=== PATIENT | male | born 1995 | race Caucasian/White ===

== ENCOUNTER 2019-10-14 00:25 | Emergency (ER) | payer SELFPAY ==
--- NOTE | 2019-10-14 00:25 | NUR ---
PT STATES THAT HE WANTS TO KILL HIMSELF AND THAT HE DOES NOT WANT TO LIVE. PT BROUGHT BACK INTO ED VIA W/C. PT HAD VOMITED ON THE FLOOR IN FRONT OF THE REGISTRATION WINDOW. PT PLACED HIMSELF INTO W/C AND WAS MOVED TO THE OUTSIDE OF ROOM FS04. ROOM WAS PREPARED AND PT WAS MOVED INTO ROOM VIA W/C. PT WAS GIVEN A GOWN AND INSTRUCTED TO TAKE OFF HIS CLOTHING AND CHANGE INTO GOWN. PT WALKED OUT OF THE ROOM AND STATED THAT HE DID NOT NEED ANY HELP AND WAS LEAVING. PT WALKED OUT OF THE ED INTO THE PARKING LOT. MARCELLA MCGRATH CONTACTED AND AND INFORMED THAT A PT WITH SUICIDAL IDEATION HAD WALKED OUT OF THE ED.
--- OUTSIDE RECORDS SUMMARY | 2019-10-14 00:32 | XMS REPORT | Clinical Summary ---
Author Author [facility] Organization [facility] Address [address] [address] Phone Care Team Providers Care Audio Visual Project Manager Name Role Phone ALEXANDRIA MAURICIO MD PCP Conditions or Problems Problem Name Problem Code Onset Date Status Entry Date Provider Comment Standard Description Annotate ALLERGIC RHINITIS 02903117 (SNOMED CT) Inactive ALEXANDRIA MAURICIO MD Allergic rhinitis Medications Medication Instructions Start Date Stop Date Generic Name NDC Pr ovider CLARITIN 10 MG TABS Take ONE tablet daily as needed 20 10/09/13 LORATADINE [id number] ALEXANDRIA MAURICIO MD FLUTICASONE PROPIONATE 50 MCG/ACT SUSP Use 1 spray to each nostril One or Two times daily. FLUTICASONE PROPIONATE [id number] ALEXANDRIA MAURICIO MD Medications Administered No information available. Allergies, Adverse Reactions, Alerts Observed no known allergies at Results No information available. Plan of Care No information available. Procedures No information available. Vital Signs Date Name Value Unit Description Weight Measured 148 [lb_av] weight E&M Weight Measured 67.27 kg weight in ki lograms E&M
--- OUTSIDE RECORDS SUMMARY | 2019-10-14 00:32 | XMS REPORT | Continuity of Care Document ---
Author Author [facility] Address [address] [place] [address] Phone Unavailable Care Team Providers Care Quiller Hand Name Role Phone Unavailable Unavailable Insurance Providers Payer Name Policy Number Subscriber Name Relationship Self-Pay Self-Pay PHIL MARES Self Advance Directives Directive Response Recorded Date/Time Advance Directives: No 03/25/15 3:45am Chief Complaint and Reason for Visit Reason for Visit ADMIT FROM ER Problems Medical Problems Problem Onset Date Status Overdose of antitussive Unknown Active Tachycardia Unknown Active Altered mental state Unknown Active Medications Medication Dose Route Sig Days/Qty Instructions Order Date Disc ontinued Date Status diphenhydrAMINE (Benadryl) 25 MG CAPSULE 25 MG ORAL At bed time takes 2 capsule every night to help sleep 03/26/15 Discontinued traZODone (Desyrel) 50 MG TABLET 50 MG ORAL Daily at bedtime 30 Qty 03/26/15 Active buPROPion 24-HR XL (Wellbutrin XL) 150 MG TAB.SR.24H 150 MG O RAL Once a day 30 Qty 03/26/15 Active Social History Social History Problem Response Recorded Date/Carlos Eduardo e 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 New patient appointment with ENT, next available, to eval tinnitus and history o f sinus infections. Follow-up with Dr. Dia in 1 week. Plan of Care Problem: overdose mucinex Goal: Provide needed support Instructions: take medications and follow up as scheduled Plan of Care Discharge Date 03/26/15 3:00pm Disposition HOME, SELF-CARE or [facility] MCKENZIE Instructions/Education Provided Bupropion (By mouth) Trazodone (By mouth) Prescriptions See Medications Section Referrals EAR, NOSE, THROAT 04/25/15 [facility] 04/05/15 [facility] 03/28/15 Lionel Henley MD Functional Status Query Response Date Recorded Paralysis: N March 25, 2015 8:00 pm Steady Gait: Y March 26, 2015 8:17 am Weakness: N March 25, 2015 8:00 pm [employer] Internship Equal: Y March 26, 2015 8:17 am Contractures: N March 25, 2015 8:00 pm Alert: Y March 26, 2015 8:17 am Oriented x4: Y March 26, 2015 8:17 am Disoriented/Confused: N March 25, 2015 8: 00pm Drowsy: Y March 25, 2015 8:00 pm Lethargic: Y March 25, 2015 8:00 pm Unresponsive: N March 25, 2015 8:00 pm Allergies, Adverse Reactions, Alerts No Known Allergies or Alert Problems. Immunizations Name Date Given Type Tetanus Less than 5 years ago Historical Vital Signs Vital Reading Collection Date/Time Result Blood Pressure 03/26/15 11:09am 128/81 Blood Pressure Source 03/26/15 11:09am SI Patient Temperature 03/26/15 11:09am 98.1 Temperature Source 03/26/15 11:09am O Respiratory Rate 03/26/15 11:09am 20 Pulse Rate 03/26/15 11:09am 73 Pulse Location 03/26/15 11:09am DYN Bedside Pulse Oximetry 03/26/15 11:09am 100 Height 03/25/15 3:30am 177.8 cm Height 03/25/15 3:30am 5 ft 10 in Weight 03/25/15 3:37am 79.5 kg Weight 03/25/15 3:37am 175 lb Body Mass Index 03/25/15 3:37am 25.1 Procedures No Known History of Procedures. Results Test Source Date Result Interp. Ref. Range Comments Basophils # 03/25/15 0.1 0.0 - 0.2 Basophils % 03/25/15 0.3 % 0.0 - 2.0 Eosinophils # 03/25/15 0.1 0.0 - 0.7 Eosinophils % 03/25/15 0.3 % 0 - 4.0 Granulocytes # 03/25/15 14.5 H 1.4 - 6.5 Granulocytes (%) 03/25/15 84.6 % H 42.2 - 75.2 Lymphocytes # 03/25/15 1.2 1.2 - 3.4 Lymphocytes % 03/25/15 7.1 % L 20.0 - 51.0 Monocytes # 03/25/15 1.2 H 0.1 - 0.6 Monocytes % 03/25/15 7.2 % 1.7 - 9.3 Urine Appearance 03/25/15 Clear - Urine Bilirubin 03/25/15 Negative mg/dL NEGATIVE - Urine Blood 03/25/15 Negative NEGATIVE - Urine Collection Type 03/25/15 CATHETER - Urine Color 03/25/15 Yellow - Urine Epithelial Cells 03/25/15 RARE /lpf FEW - Urine Glucose 03/25/15 Negative mg/dL - Urine Ketones 03/25/15 5 NEGATIVE - Urine Leukocyte Esterase 03/25/15 Negative NEGAT CATINA - Urine Nitrate 03/25/15 Negative NEGATIVE - Urine Protein 03/25/15 Negative mg/dL NEGATIVE - Urine RBC 03/25/15 0-3 /hpf 0 - 3 Urine Specific [place] 03/25/15 1.020 1.001 - 1.035 Urine Urobilinogen 03/25/15 Negative mg/dL NORMAL - Urine WBC 03/25/15 0-3 /hpf 0 - 3 Urine pH 03/25/15 5.0 5.0 - 8.0 Rapid Troponin I 03/25/15 <0.02 ng/mL 0.00 - 0.08 Acetaminophen Level 03/25/15 < 10 ug/mL L 10 - 30 Alanine Aminotransferase (ALT/SGPT) 03/25/15 39 U/L 21 - 72 Albumin 03/25/15 4.9 gm/dL 3.5 - 5.0 Alkaline Phosphatase 03/25/15 79 U/L 50 - 136 Aspartate Amino Transf (AST/SGOT) 03/25/15 37 U/L 15 - 37 Calcium Adjusted for Albumin 03/25/15 8.6 mg/dL 8 .4 - 10.2 Magnesium Level 03/25/15 1.7 mg/dL 1.6 - 2.3 Phosphorus Level 03/25/15 2.3 mg/dL L 2.5 - 4.5 Plasma/Serum Blood Alcohol 03/25/15 < 10 mg/dL - Salicylates Level 03/25/15 < 1.0 mg/dL - Serum Total Protein 03/25/15 8.3 gm/dL H 6.4 - 8.2 Total Bilirubin 03/25/15 1.9 mg/dL H 0.0 - 1.0 Hematocrit 03/26/15 46.8 % 36.0 - 47.0 Hemoglobin 03/26/15 16.3 g/dl H 12.5 - 16.1 Mean Corpuscular Hemoglobin 03/26/15 30 pg 26 .0 - 32.0 Mean Corpuscular Hemoglobin Concent 03/26/15 35 g/dl 33.0 - 37.0 Mean Corpuscular Volume 03/26/15 86 fl 80.0 - 95.0 Mean Platelet Volume 03/26/15 8.8 fl 7.4 - 10. 4 Platelet Count 03/26/15 215 K/mm3 130 - 400 Red Blood Count 03/26/15 5.44 M/mm3 4.20 - 5.60 Red Cell Distribution Width 03/26/15 14.0 % 11 .5 - 14.5 White Blood Count 03/26/15 6.9 K/mm3 4.8 - 10.8 Anion Gap 03/26/15 12 mmol/L 7 - 16 Blood Urea Nitrogen 03/26/15 13 mg/dL 9 - 20 Calcium Level 03/26/15 9.4 mg/dL 8.4 - 10.2 Carbon Dioxide Level 03/26/15 25 mmol/L 22 - 30 Chloride Level 03/26/15 105 mmol/L 98 - 107 Creatinine 03/26/15 0.75 mg/dL 0.66 - 1.25 Estimated GFR () 03/26/15 161 - Estimated GFR (Non- 03/26/15 133 - Glucose Level 03/26/15 98 mg/dL 74 - 106 Potassium Level 03/26/15 4.0 mmol/L 3.4 - 5.0 Sodium Level 03/26/15 142 mmol/L 137 - 145 Basophils # 03/25/15 0.1 0.0 - 0.2 Basophils % 03/25/15 0.3 % 0.0 - 2.0 Eosinophils # 03/25/15 0.1 0.0 - 0.7 Eosinophils % 03/25/15 0.3 % 0 - 4.0 Granulocytes # 03/25/15 14.5 H 1.4 - 6.5 Granulocytes (%) 03/25/15 84.6 % H 42.2 - 75.2 Lymphocytes # 03/25/15 1.2 1.2 - 3.4 Lymphocytes % 03/25/15 7.1 % L 20.0 - 51.0 Monocytes # 03/25/15 1.2 H 0.1 - 0.6 Monocytes % 03/25/15 7.2 % 1.7 - 9.3 Urine Appearance 03/25/15 Clear - Urine Bilirubin 03/25/15 Negative mg/dL NEGATIVE - Urine Blood 03/25/15 Negative NEGATIVE - Urine Collection Type 03/25/15 CATHETER - Urine Color 03/25/15 Yellow - Urine Epithelial Cells 03/25/15 RARE /lpf FEW - Urine Glucose 03/25/15 Negative mg/dL - Urine Ketones 03/25/15 5 NEGATIVE - Urine Leukocyte Esterase 03/25/15 Negative NEGAT CATINA - Urine Nitrate 03/25/15 Negative NEGATIVE - Urine Protein 03/25/15 Negative mg/dL NEGATIVE - Urine RBC 03/25/15 0-3 /hpf 0 - 3 Urine Specific [place] 03/25/15 1.020 1.001 - 1.035 Urine Urobilinogen 03/25/15 Negative mg/dL NORMAL - Urine WBC 03/25/15 0-3 /hpf 0 - 3 Urine pH 03/25/15 5.0 5.0 - 8.0 Rapid Troponin I 03/25/15 <0.02 ng/mL 0.00 - 0.08 Acetaminophen Level 03/25/15 < 10 ug/mL L 10 - 30 Alanine Aminotransferase (ALT/SGPT) 03/25/15 39 U/L 21 - 72 Albumin 03/25/15 4.9 gm/dL 3.5 - 5.0 Alkaline Phosphatase 03/25/15 79 U/L 50 - 136 Aspartate Amino Transf (AST/SGOT) 03/25/15 37 U/L 15 - 37 Calcium Adjusted for Albumin 03/25/15 8.6 mg/dL 8 .4 - 10.2 Magnesium Level 03/25/15 1.7 mg/dL 1.6 - 2.3 Phosphorus Level 03/25/15 2.3 mg/dL L 2.5 - 4.5 Plasma/Serum Blood Alcohol 03/25/15 < 10 mg/dL - Salicylates Level 03/25/15 < 1.0 mg/dL - Serum Total Protein 03/25/15 8.3 gm/dL H 6.4 - 8.2 Total Bilirubin 03/25/15 1.9 mg/dL H 0.0 - 1.0 Hematocrit 03/26/15 46.8 % 36.0 - 47.0 Hemoglobin 03/26/15 16.3 g/dl H 12.5 - 16.1 Mean Corpuscular Hemoglobin 03/26/15 30 pg 26 .0 - 32.0 Mean Corpuscular Hemoglobin Concent 03/26/15 35 g/dl 33.0 - 37.0 Mean Corpuscular Volume 03/26/15 86 fl 80.0 - 95.0 Mean Platelet Volume 03/26/15 8.8 fl 7.4 - 10. 4 Platelet Count 03/26/15 215 K/mm3 130 - 400 Red Blood Count 03/26/15 5.44 M/mm3 4.20 - 5.60 Red Cell Distribution Width 03/26/15 14.0 % 11 .5 - 14.5 White Blood Count 03/26/15 6.9 K/mm3 4.8 - 10.8 Anion Gap 03/26/15 12 mmol/L 7 - 16 Blood Urea Nitrogen 03/26/15 13 mg/dL 9 - 20 Calcium Level 03/26/15 9.4 mg/dL 8.4 - 10.2 Carbon Dioxide Level 03/26/15 25 mmol/L 22 - 30 Chloride Level 03/26/15 105 mmol/L 98 - 107 Creatinine 03/26/15 0.75 mg/dL 0.66 - 1.25 Estimated GFR () 03/26/15 161 - Estimated GFR (Non- 03/26/15 133 - Glucose Level 03/26/15 98 mg/dL 74 - 106 Potassium Level 03/26/15 4.0 mmol/L 3.4 - 5.0 Sodium Level 03/26/15 142 mmol/L 137 - 145 Encounters Encounter Location Date/Time Discharged Inpatient [facility] 03/26/15 3:00pm Discharged Emergency [facility] 03/25/15 3:32am Recent Diagnosis Overdose of antitussive Tachycardia Altered mental state
--- OUTSIDE RECORDS SUMMARY | 2019-10-14 00:32 | XMS REPORT | Continuity of Care Document ---
Author Organization Unknown Address Unknown Phone Unavailable Allergies Active Description Code Type Severity Reaction Onset Reported/Identified Relationship to Patient Clinical Status Yes Unable to Assess N/A N/A Yes No Known Allergies NKA Mis cellaneous Allergy Unknown N/A 03/25/2015 Medications There is no data. Problems Date Dx Coded Attending Type Code Diagnosis Diagnosed By 03/26/2015 ANTON, JUAREZ W 300.4 03/26/2015 ANTON, JUAREZ W 314.01 03/26/2015 ANTON, JUAREZ W 315.2 03/26/2015 ANTON, JUAREZ W 339.3 03/26/2015 ANTON, JUAREZ W 428.0 03/26/2015 ANTON, JUAREZ W 428.22 03/26/2015 ANTON, JUAREZ W 511.9 03/26/2015 ANTON, JUAREZ A 975.5 03/26/2015 ANTON, JUAREZ W E849.9 03/26/2015 ANTON, JUAREZ W E858.6 04/21/2015 GUANAKO BRADSHAW 4619 ACUTE SINUSITIS NOS Procedures There is no data. Results There is no data. Encounters ACCT No. Visit Date/Time Discharge Status Pt. Type Provider Facility Loc./Unit Complaint [id number] 04/21/2015 20:43:00 04/21/2015 22:03 :00 DIS Emergency [facility]EE[facility] [id number] 03/25/2015 02:55:00 5 15:00:00 DIS Inpatient JUAREZ WALTON [facility] [place] 04/21/2015 20:44:33 ACT Document Registration
== END 2019-10-14 00:33 | disposition left against medical advice (07) ==
LOC: EDUNIT# 00:25 → ER FS 00:28
DX: R45.851 Suicidal ideations (principal); R11.10 Vomiting, unspecified

== ENCOUNTER 2019-10-14 00:48 | Emergency (ER) | payer SELFPAY ==
[~2019-10-14] VITALS: Ht 185.4 cm; Wt 81.7 kg
--- NOTE | 2019-10-14 00:58 | ED Psychosocial ---
General Stated Complaint: ETOH AND PILLS Source: patient Exam Limitations: no limitations (KATHLEEN MATIAS DO) History of Present Illness Date Seen by Provider: Oct 14, 2019 Time Seen by Provider: 00:57 Initial Comments Presents w SI / SA precipitated by his cheating on him and telling him to get out. Took about 10 prazosin 2mg tablets about 1 hour [employer], then vomited in ER waiting room. States he has felt depressed and having SI for awhile. 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 Has also started cutting both forearms a couple days ago. Denies any ETOH ingestion for > 24 hours. Denies any current or Hx of illicit drug use. (KATHLEEN MATIAS DO) Allergies and Home Medications Allergies Coded Allergies: No Allergy Information Available (Unverified , 10/14/19) Patient Home Medication List Home Medication List Reviewed: Yes (KATHLEEN MATIAS DO) Review of Systems Constitutional: see HPI EENTM: no symptoms reported Respiratory: no symptoms reported Cardiovascular: no symptoms reported Psychiatric/Neurological: Denies No Symptoms Reported; See HPI; Denies Anxiety; Depressed, Emotional Problems; Denies Headache, Denies Numbness, Denies Paresthesia, Denies Pre-Existing Deficit, Denies Seizure, Denies Tingling, Denies Tremors, Denies Weakness, Denies Other (KATHLEEN MATIAS DO) Past Eyifrde-Zkxszd-Jmgixg Hx Past Med/Social Hx: Reviewed Nursing Past Med/Soc Hx (KATHLEEN MATIAS DO) Patient Social History Alcohol Use: Occasionally Uses Recreational Drug Use: No Recent Foreign Travel: No Contact w/Someone Who Travel: No (KATHLEEN MATIAS DO) Physical Exam Vital Signs - First Documented 10/14/19 01:00 Temp 36.4 Pulse 113 Resp 17 B/P (MAP) 127/84 (98) O2 Delivery Room Air (MELBA LLOYD MD) Capillary Refill : (KATHLEEN MATIAS DO) Height, Weight, BMI Height: '" Weight: lbs. oz. kg; BMI Method: General Appearance: WD/WN, no apparent distress HEENT: normal ENT inspection Respiratory: chest non-tender, lungs clear Cardiovascular: regular rate, rhythm, no edema Gastrointestinal: non tender, soft Extremities: normal range of motion, normal capillary refill Neurologic/Psychiatric: no motor/sensory deficits, alert, oriented x 3, depressed affect Appearance/Memory: appropriate appearance, disheveled Behavior/Eye Contact: cooperative, good eye contact, normal speech Thoughts/Hallucinations: normal thought pattern, no apparent hallucination Skin: normal color (ROVENSTINE,KATHLEEN L DO) Progress/Results/Core Measures Results/Orders Lab Results Laboratory Tests Test 10/14/19 01:03 10/14/19 01:05 10/14/19 05:01 Range/Units Urine Opiates Screen NEGATIVE NEGATIVE Urine Oxycodone Screen NEGATIVE NEGATIVE Urine Methadone Screen NEGATIVE NEGATIVE Urine Propoxyphene Screen NEGATIVE NEGATIVE Urine Barbiturates Screen NEGATIVE NEGATIVE Ur Tricyclic Antidepressants Screen NEGATIVE NEGATIVE Urine Phencyclidine Screen NEGATIVE NEGATIVE Urine Amphetamines Screen NEGATIVE NEGATIVE Urine Methamphetamines Screen NEGATIVE NEGATIVE Urine Benzodiazepines Screen NEGATIVE NEGATIVE Urine Cocaine Screen NEGATIVE NEGATIVE Urine Cannabinoids Screen NEGATIVE NEGATIVE White Blood Count 11.2 H 4.3-11.0 10^3/uL Red Blood Count 5.91 H 4.35-5.85 10^6/uL Hemoglobin 18.0 H 13.3-17.7 G/DL Hematocrit 51 40-54 % Mean Corpuscular Volume 86 80-99 FL Mean Corpuscular Hemoglobin 30 25-34 PG Mean Corpuscular Hemoglobin Concent 35 32-36 G/DL Red Cell Distribution Width 16.7 H 10.0-14.5 % Platelet Count 268 130-400 10^3/uL Mean Platelet Volume 8.8 7.4-10.4 FL Neutrophils (%) (Auto) 77 H 42-75 % Lymphocytes (%) (Auto) 16 12-44 % Monocytes (%) (Auto) 6 0-12 % Eosinophils (%) (Auto) 1 0-10 % Basophils (%) (Auto) 0 0-10 % Neutrophils # (Auto) 8.6 H 1.8-7.8 X 10^3 Lymphocytes # (Auto) 1.8 1.0-4.0 X 10^3 Monocytes # (Auto) 0.6 0.0-1.0 X 10^3 Eosinophils # (Auto) 0.1 0.0-0.3 10^3/uL Basophils # (Auto) 0.0 0.0-0.1 10^3/uL Sodium Level 148 H 135-145 MMOL/L Potassium Level 3.7 3.6-5.0 MMOL/L Chloride Level 102 98-107 MMOL/L Carbon Dioxide Level 20 L 21-32 MMOL/L Anion Gap 26 H 5-14 MMOL/L Blood Urea Nitrogen 11 7-18 MG/DL Creatinine 0.84 0.60-1.30 MG/DL Estimat Glomerular Filtration Rate > 60 BUN/Creatinine Ratio 13 Glucose Level 86 70-105 MG/DL Calcium Level 9.6 8.5-10.1 MG/DL Corrected Calcium 8.5-10.1 MG/DL Total Bilirubin 1.1 H 0.1-1.0 MG/DL Aspartate Amino Transf (AST/SGOT) 19 5-34 U/L Alanine Aminotransferase (ALT/SGPT) 12 0-55 U/L Alkaline Phosphatase 83 40-136 U/L Total Protein 8.3 H 6.4-8.2 GM/DL Albumin 5.2 H 3.2-4.5 GM/DL Salicylates Level < 0.3 L 5.0-20.0 MG/DL Acetaminophen Level < 10 L 10-30 UG/ML Serum Alcohol 131 H 59 H <10 MG/DL (MELBA LLOYD MD) Medications Given in ED Current Medications Medications Dose Ordered Sig/Yesenia Route Start Time Stop Time Status Last Admin Dose Admin Acetaminophen 650 mg ONCE ONCE PO 10/14/19 06:15 10/14/19 06:16 DC 10/14/19 06:13 650 MG Ondansetron HCl 4 mg ONCE ONCE IVP 10/14/19 01:30 10/14/19 01:31 DC 10/14/19 01:29 4 MG (MELBA LLOYD MD) Vital Signs/I&O 10/14/19 01:00 Temp 36.4 Pulse 113 Resp 17 B/P (MAP) 127/84 (98) O2 Delivery Room Air (MELBA LLOYD MD) Progress Progress Note : Progress Note Mental health screening has been completed Patient is not interested in voluntary hospitalization and is not felt to be a threat to self or others to warrant involuntary hospitalization Arrangements have been made for a crisis appointment later this morning Patient has tolerated his ingestion without evidence of serious adverse effects Will be released with a safety plan to follow up with his crisis mental health appointment in a few hours (MELBA LLOYD MD) Transfer of Care Time: 06:00 Care transferred to: Dr Lloyd (KATHLEEN MATIAS DO) Departure Impression Primary Impression: Suicidal ideation Additional Impression: Suicide gesture Qualified Codes: X83.8XXA - Intentional self-harm by other specified means, initial encounter Disposition: 01 HOME, SELF-CARE Condition: Stable Departure-Patient Inst. Decision time for Depature: 07:27 (MELBA LLOYD MD) Referrals: NO,LOCAL PHYSICIAN (PCP/Family) Primary Care Physician Patient Instructions: Depression, Adult (DC) Add. Discharge Instructions: Be sure to keep your mental health crisis appointment later this morning If you have further thoughts of self-harm please return to the ER prior to acting on those impulses KATHLEEN MATIAS DO Oct 14, 2019 00:58 MELBA LLOYD MD Oct 14, 2019 07:25
--- OUTSIDE RECORDS SUMMARY | 2019-10-14 00:58 | XMS REPORT | Continuity of Care Document ---
[...] Status Pt. Type Provider Facility Loc./Unit Complaint [id number] 04/21/2015 20:43:00 04/21/2015 22:03 :00 DIS Emergency [facility] [id number] 03/25/2015 02:55:00 5 15:00:00 DIS Inpatient JUAREZ WALTON [facility] [place] 04/21/2015 20:44:33 ACT Document Registration
[2019-10-14] MEDS ORDERED: NS IV 1000 ML 1,000 ML IV SCH (01:15)
[2019-10-14 01:19] LABS: BASOPHILS % (AUTO) 0 % (0-10); EOSINOPHILS # (AUTO) 0.1 10^3/uL (0.0-0.3); EOSINOPHILS % (AUTO) 1 % (0-10); HEMATOCRIT 51 % (40-54); LYMPHOCYTES # (AUTO) 1.8 X 10^3 (1.0-4.0); LYMPHOCYTES % (AUTO) 16 % (12-44); MEAN CORPUSCULAR HEMOGLOBIN 30 PG (25-34); MEAN CORPUSCULAR HGB CONC 35 G/DL (32-36); MEAN CORPUSCULAR VOLUME 86 FL (80-99); MEAN PLATELET VOLUME 8.8 FL (7.4-10.4); MONOCYTES # (AUTO) 0.6 X 10^3 (0.0-1.0); MONOCYTES % (AUTO) 6 % (0-12); NEUTROPHILS # (AUTO) 8.6 X 10^3 (1.8-7.8); NEUTROPHILS % (AUTO) 77 % (42-75); PLATELET COUNT 268 10^3/uL (130-400); RED CELL DISTRIBUTION WIDTH 16.7 % (10.0-14.5); WHITE BLOOD COUNT 11.2 10^3/uL (4.3-11.0)
[2019-10-14] MEDS ORDERED: ONDANSETRON 4 MG/2 ML (SDV) Z0FRAN ONE (01:21)
[2019-10-14 01:27] LABS: AMPHETAMINE SCREEN, URINE NEGATIVE (NEGATIVE); BARBITURATE SCREEN URINE NEGATIVE (NEGATIVE); BENZODIAZEPINES SCREEN URINE NEGATIVE (NEGATIVE); CANNABINOID SCREEN, URINE NEGATIVE (NEGATIVE); COCAINE SCREEN URINE NEGATIVE (NEGATIVE); METHADONE STAT NEGATIVE (NEGATIVE); METHAMPHETAMINE SCREEN URINE S NEGATIVE (NEGATIVE); OPIATE SCREEN URINE NEGATIVE (NEGATIVE); OXYCODONE STAT NEGATIVE (NEGATIVE); PROPOXYPHENE STAT NEGATIVE (NEGATIVE); TRICYCLIC ANTIDEPRESSANTS SCRE NEGATIVE (NEGATIVE)
[2019-10-14] MEDS ORDERED: ONDANSETRON 4 MG/2 ML (SDV) Z0FRAN IVP ONE (01:30)
--- NOTE | 2019-10-14 01:30 | NUR ---
PT RESTING IN BED WITH THE LIGHTS OFF. PT STATES WE SHOULD HAVE "JUST LET ME ".
--- NOTE | 2019-10-14 01:43 | NUR ---
PT REQUESTED AND AN ATTEMPT WAS MADE TO CALL HIS . NO ANSWER AND THE VOICEMAIL BOX WAS FULL.
[2019-10-14 01:49] LABS: ALANINE AMINOTRANSFERASE 12 U/L (0-55); ALBUMIN 5.2 GM/DL (3.2-4.5); ALKALINE PHOSPHATASE 83 U/L (40-136); BILIRUBIN,TOTAL 1.1 MG/DL (0.1-1.0); BUN/CREATININE RATIO 13; CALCIUM 9.6 MG/DL (8.5-10.1); CARBON DIOXIDE 20 MMOL/L (21-32); CHLORIDE 102 MMOL/L (98-107); CREATININE SERUM 0.84 MG/DL (0.60-1.30); GFR ESTIMATED > 60; GLUCOSE 86 MG/DL (70-105); POTASSIUM 3.7 MMOL/L (3.6-5.0); SALICYLATE < 0.3 MG/DL (5.0-20.0); SODIUM 148 MMOL/L (135-145); TOTAL PROTEIN 8.3 GM/DL (6.4-8.2)
[2019-10-14 01:50] LABS: ACETAMINOPHEN < 10 UG/ML (10-30)
--- NOTE | 2019-10-14 01:50 | NUR ---
[facility] CONTACTED. INFORMED THAT PT WILL NEED TO BE MONITORED FOR 6 HOURS.
--- NOTE | 2019-10-14 02:09 | NUR ---
[facility] THIS RN INFORMED THAT THEY WILL RETURN CALL IN APPROX 30-60 MINUTES. TRACKING #[id number]
--- NOTE | 2019-10-14 02:22 | NUR ---
[facility] RETURNED CALL AND STATES THAT THE PT BLOOD ETOH NEEDS TO BE UNDER 100 BEFORE THEY WILL SCREEN PT.
--- NOTE | 2019-10-14 02:35 | NUR ---
PT RESTING IN BED AND WAKES EASILY. PT INFORMED THAT HE WILL HAVE TO WAIT UNTIL HIS BLOOD ALCOHOL LEVEL IS LESS THAN 100 PRIOR TO [facility] SCREENING. PT STATES THAT HE UNDERSTANDS AND THAT THERE IS NOTHING ELSE HE NEEDS AT THIS TIME. PT REQUESTED AND WAS GIVEN ANOTHER WARM BLANKET.
--- NOTE | 2019-10-14 05:00 | NUR ---
PT AWAKE AND OUT OF BED. PT AMBULATE TO BATHROOM.
--- NOTE | 2019-10-14 05:53 | NUR ---
[facility] CONTACTED AND INFORMED THAT PT ALCOHOL LEVEL IS WITHIN LIMIT FOR SCREENING. [facility] TO RETURN CALL.
[2019-10-14] MEDS ORDERED: ACETAMINOPHEN 325 MG TABLET PO ONE (06:15)
--- NOTE | 2019-10-14 06:40 | NUR ---
[facility] SCREENER CALLED AND PT IS ON VIDEO CHAT WITH SCREENER.
--- NOTE | 2019-10-14 07:00 | NUR ---
PT ST[facility]
--- NOTE | 2019-10-14 07:00 | NUR ---
REPORT FROM YOLIS JACK. PT LYING ON CART WHILE BEING SCREENED.
--- NOTE | 2019-10-14 07:15 | NUR ---
SCREENING HAS BEEN COMPLETED AND LAPTOP PROVIDED BACK TO RN. PT USED BATHROOM AND THEN RETURNED TO .
--- NOTE | 2019-10-14 07:35 | NUR ---
PT HAS SIGNED HIS CONTRACT TO NOT HARM SELF FOR MENTAL HEALTH.
--- NOTE | 2019-10-14 07:50 | NUR ---
FAXED CONTRACT BACK TO [facility] KAMI.
[2019-10-14 07:59] VITALS: BP 137/79
--- NOTE | 2019-10-14 07:59 | NUR ---
PT DISCHARGED AT THIS TIME. SEE NURSING DISCHARGE SUMMARY AND SCANNED CONTRACT FROM [facility]. PT IS TO ATTEND HIS APPT AT [place] AT 1100 WITH [facility]. PT HAS COPY OF CONTRACT, ADDRESS AND PHONE NUMBER.
== END 2019-10-14 07:59 | disposition home or self-care (01) ==
LOC: EDUNIT# 00:48 → ER FS 00:53
DX: R45.851 Suicidal ideations (principal)
CPT/HCPCS: 36415; 80053; 80306; 80320; 80329; 85025; 93005; 96361; 96374